=== PATIENT | female | born 1995 | race Two or more races ===

== ENCOUNTER 2019-03-29 15:29 | Emergency (ER) | payer MEDICAID ==
[~2019-03-29] VITALS: Ht 162.6 cm; Wt 56.7 kg
[2019-03-29 16:12] VITALS: BP 94/54
== END 2019-03-29 16:36 | disposition home or self-care (01) ==
LOC: ER 15:29 → EDBD 15:29 → ER 16:36
DX: S40.012A Contusion of left shoulder, initial encounter (principal); W22.8XXA Striking against or struck by other objects, initial encounter; Y93.89 Activity, other specified; Y99.8 Other external cause status; Y92.89 Other specified places as the place of occurrence of the external cause
CPT/HCPCS: 73030

== ENCOUNTER 2019-09-21 18:39 | Emergency (ER) | payer SELFPAY ==
[2019-09-21 19:53] VITALS: BP 129/78
== END 2019-09-21 20:12 | disposition home or self-care (01) ==
LOC: ER 18:41
DX: H66.92 Otitis media, unspecified, left ear (principal); H91.8X2 Other specified hearing loss, left ear; J06.9 Acute upper respiratory infection, unspecified